=== PATIENT | male | born 1940 | race Caucasian/White ===

== ENCOUNTER 2017-02-13 19:06 | Emergency (ER) | payer MEDICARE, OTHER ==
[~2017-02-13] VITALS: Ht 177.8 cm; Wt 81.8 kg
[2017-02-13] MEDS ORDERED: ONDANSETRON 2MG/ML, 2ML ONE (19:30)
[2017-02-13] MEDS ORDERED: SODIUM CHLORIDE FLUSH 10ML SYR IVF ONE (19:30)
[2017-02-13] MEDS ORDERED: KETOROLAC 30 MG/1 ML IVPush ONE (19:30)
[2017-02-13] MEDS ORDERED: ONDANSETRON 2MG/ML, 2ML IVPush ONE (19:30)
[2017-02-13] MEDS ORDERED: SODIUM CHLORIDE 0.9% 1,000ML IVBOLUS ONE (19:30)
[2017-02-13] MEDS ORDERED: MORPHINE SULFATE 4 MG/ML, 1ML ONE ×2 (19:30→21:34)
[2017-02-13] MEDS ORDERED: KETOROLAC 30 MG/1 ML ONE (19:31)
[2017-02-13] MEDS: MORPHINE SULFATE 4 MG/ML, 1ML IVPush PRN ×2 (19:51→21:50)
[2017-02-13] MEDS ORDERED: MULT-516 PO (20:21)
[2017-02-13] MEDS ORDERED: PRAS1TAB2 PO (20:21)
[2017-02-13 20:31] LABS: PATH.CAST-FLAG NOT PRESENT; SPERM-FLAG NOT PRESENT; SRC-FLAG NOT PRESENT; XTAL-FLAG NOT PRESENT; YLC-FLAG NOT PRESENT
[2017-02-13 21:06] LABS: BLOOD UREA NITROGEN 24 mg/dL (7-18)
[2017-02-13 21:10] LABS: ASPARTATE AMINO TRANSFERASE 23 U/L (15-37)
[2017-02-13] MEDS ORDERED: TAMSULOSIN 0.4 MG CAP.ER.24H PO ONE (21:30)
[2017-02-13] MEDS ORDERED: TAMSULOSIN 0.4 MG CAP.ER.24H ONE (21:52)
[2017-02-13 22:48] VITALS: BP 136/86
== END 2017-02-13 22:51 | disposition home or self-care (01) ==
LOC: ED 22:45
DX: N13.2 Hydronephrosis with renal and ureteral calculous obstruction (principal); Z88.0 Allergy status to penicillin
CPT/HCPCS: 36415; 74000; 74176; 80053; 81001; 83690; 85025; 96361; 96374; 96375; 96376; 99285; J1885; J2405; J7030